=== PATIENT | male | born 1960 | race African-American/Black ===

== ENCOUNTER 2017-01-07 17:11 | Inpatient (IN) | payer MEDICAID, OTHER ==
[~2017-01-07] VITALS: Ht 175.3 cm; Wt 63.5 kg
[~2017-01-07 17:11] MED LIST: NKM
[2017-01-07] MEDS ORDERED: Enoxaparin 60mg Inj SUBQ ONE (17:30)
[2017-01-07] MEDS ORDERED: Aspirin Baby 81mg ORAL ONE (17:30)
[2017-01-07 17:45] LABS: BASOPHILS % (AUTO) 1.6 % (0.0-2.0); LYMPHOCYTES % (AUTO) 43.1 % (20.0-45.0); MEAN CORPUSCULAR HEMOGLOBIN 30.2 PG (27.0-31.0); MEAN CORPUSCULAR HGB CONC 31.4 G/DL (32.0-36.0); MEAN CORPUSCULAR VOLUME 96 FL (80-99); MEAN PLATELET VOLUME 7.7 FL (6.5-10.1); MONOCYTES % (AUTO) 9.1 % (1.0-10.0); NEUTROPHILS % (AUTO) 42.2 % (45.0-75.0); PLATELET COUNT 223 K/UL (150-450); RED BLOOD COUNT 4.71 M/UL (4.70-6.10); RED CELL DISTRIBUTION WIDTH 12.2 % (11.6-14.8); WHITE BLOOD COUNT 6.6 K/UL (4.8-10.8)
[2017-01-07 17:51] LABS: ALANINE AMINOTRANSFERASE 15 U/L (3-41); ALBUMIN/GLOBULIN RATIO 1.8 (1.0-2.7); ASPARTATE AMINO TRANSFERASE 17 U/L (5-40); CALCIUM 9.6 mg/dL (8.6-10.2); CARBON DIOXIDE 27 mEQ/L (20-30); GLOMERULAR FILTRATION RATE > 60 mL/min (>60); HEMOLYSIS 3; TOTAL PROTEIN 7.2 g/dL (6.6-8.7); TROPONIN I < 0.30 ng/mL (<=0.30)
[2017-01-07 17:52] LABS: ANION GAP 13 (5-15); CHLORIDE 99 mEQ/L (98-107); POTASSIUM 3.7 mEQ/L (3.4-4.9); SODIUM 139 mEQ/L (135-145)
[2017-01-07 17:56] VITALS: BP 148/85
[2017-01-07 18:02] LABS: CKMB 1.8 ng/mL (< 6.7)
[2017-01-07] MEDS ORDERED: AMLODIPINE-BEN1 EAC1 ORAL (18:23)
[2017-01-07] MEDS ORDERED: ISOSORBIDE MONO30 M1 PO (18:23)
[2017-01-07] MEDS ORDERED: LISINOPRIL5 MG ORAL (18:23)
[2017-01-07] MEDS ORDERED: CLOPIDOGREL75 MG ORAL (18:23)
--- NOTE | 2017-01-07 19:13 | Emergency Room Report ---
History of Present Illness General Chief Complaint: Chest Pain Source: Patient Present Illness HPI Patient is a 56-year-old male who presented after increased chest pain. Patient reported having increased chest tightness. He had previously had angioplasty approximately one year ago. Patient had the previously been noted to have some stents placed at [facility]. He reported being compliant with his medications. The patient states that the pain was moderate in nature. He denied any fever or cough. He denied any leg pain or swelling. Allergies: Coded Allergies: No Known Allergies (Unverified , 06/07/15) Patient History Past Medical History: see triage record Reviewed Nursing Documentation: PMH: Agreed, PSxH: Agreed Nursing Documentation-PMH Hx Cardiac Problems: Yes - TX 4x stent Hx Hypertension: Yes Hx Cancer: No Hx Gastrointestinal Problems: No Hx Neurological Problems: No Review of Systems All Other Systems: negative except mentioned in HPI Physical Exam Vital Signs Date Time Temp Pulse Resp B/P (MAP) Pulse Ox O2 Delivery O2 Flow Rate FiO2 01/07/17 17:19 98.4 88 18 140/95 100 Room Air Sp02 EP Interpretation: reviewed, normal General Appearance: normal inspection, well appearing, no apparent distress, alert, GCS 15 Head: atraumatic ENT: normal ENT inspection, hearing grossly normal, normal voice Neck: normal inspection, full range of motion, supple, no bony tend Respiratory: normal inspection, lungs clear, normal breath sounds, no respiratory distress, no retraction, no wheezing Cardiovascular #1: regular rate, rhythm, no edema Gastrointestinal: normal inspection, normal bowel sounds, non tender, soft, no guarding, no hernia Genitourinary: no CVA tenderness Musculoskeletal: normal inspection, back normal, normal range of motion Neurologic: normal inspection, alert, oriented x3, responsive, rn delivery III-XII nml as tested, speech normal Psychiatric: normal inspection, judgement/insight normal, mood/affect normal Skin: normal inspection, normal color, no rash Medical Decision Making Diagnostic Impression: Primary Impression: Chest pain Additional Impression: ACS (acute coronary syndrome) ER Course Patient presented for chest pain.Differential diagnosis included but was not limited to acute coronary syndrome, pulmonary embolism, pneumonia, aortic dissection, shingles, pneumothorax, aortic dissection, esophageal rupture, pericarditis. Because of complexity of patient's case laboratory testing and imaging studies were ordered. EKG interpreted by me showed normal sinus rhythm with a rate of [address] changes. The patient was noted to have frequent PVCs. The patient noted have T-wave inversion inferiorly and laterally. The patient was given aspirin as well as Lovenox. The patient reported having some improvement in his painThe initial laboratory testing showed negative troponin. Dr. Aba Cowan was contacted for cardiology consult. Dr. Kvng Sen was contacted for inpatient management due to capitated physician. Labs Test 01/07/17 17:30 White Blood Count 6.6 K/UL (4.8-10.8) Red Blood Count 4.71 M/UL (4.70-6.10) Hemoglobin 14.2 G/DL (14.2-18.0) Hematocrit 45.2 % (42.0-52.0) Mean Corpuscular Volume 96 FL (80-99) Mean Corpuscular Hemoglobin 30.2 PG (27.0-31.0) Mean Corpuscular Hemoglobin Concent 31.4 G/DL (32.0-36.0) Red Cell Distribution Width 12.2 % (11.6-14.8) Platelet Count 223 K/UL (150-450) Mean Platelet Volume 7.7 FL (6.5-10.1) Neutrophils (%) (Auto) 42.2 % (45.0-75.0) Lymphocytes (%) (Auto) 43.1 % (20.0-45.0) Monocytes (%) (Auto) 9.1 % (1.0-10.0) Eosinophils (%) (Auto) 4.0 % (0.0-3.0) Basophils (%) (Auto) 1.6 % (0.0-2.0) Sodium Level 139 mEQ/L (135-145) Potassium Level 3.7 mEQ/L (3.4-4.9) Chloride Level 99 mEQ/L (98-107) Carbon Dioxide Level 27 mEQ/L (20-30) Anion Gap 13 (5-15) Blood Urea Nitrogen 8 mg/dL (7-23) Creatinine 1.0 mg/dL (0.7-1.2) Estimat Glomerular Filtration Rate > 60 mL/min (>60) Glucose Level 131 mg/dL (74-106) Calcium Level 9.6 mg/dL (8.6-10.2) Total Bilirubin 0.3 mg/dL (0.0-1.2) Aspartate Amino Transf (AST/SGOT) 17 U/L (5-40) Alanine Aminotransferase (ALT/SGPT) 15 U/L (3-41) Alkaline Phosphatase 74 U/L (40-129) Total Creatine Kinase 133 U/L (38-174) Creatine Kinase MB 1.8 ng/mL (< 6.7) Creatine Kinase MB Relative Index 1.3 Troponin I < 0.30 ng/mL (<=0.30) Pro-B-Type Natriuretic Peptide 184 pg/mL (0-125) Total Protein 7.2 g/dL (6.6-8.7) Albumin 4.7 g/dL (3.5-5.2) Globulin 2.5 g/dL Albumin/Globulin Ratio 1.8 (1.0-2.7) EKG Diagnostic Results Rate: normal Rhythm: NSR ST Segments: other - t wave inversion Rhythm Strip Diag. Results EP Interpretation: yes Rhythm: NSR, no PVC's, no ectopy, other Last Vital Signs Date Time Temp Pulse Resp B/P (MAP) Pulse Ox O2 Delivery O2 Flow Rate FiO2 01/07/17 17:56 98.4 74 19 148/85 100 Room Air Status: improved Disposition: XFER SHT-TRM HOSP Condition: Serious Referrals: [facility],REFERRING (PCP) Yonatan Brice Jan 07, 2017 19:13
[2017-01-07 19:30] VITALS: BP 166/99
[2017-01-08] VITALS: BP 146/98
[2017-01-08] MEDS ORDERED: NS 275ml ONE (00:59)
[2017-01-08] MEDS ORDERED: Carvedilol 6.25mg Tab ORAL ONE (02:45)
--- NOTE | 2017-01-08 07:01 | Consultation ---
DATE OF CONSULTATION: 01/07/2017 CARDIOLOGY CONSULTATION CONSULTING PHYSICIAN: Aba Cowan M.D. REQUESTING PHYSICIAN: Kvng Sen M.D. Reason for consultation: Chest pain and known coronary artery disease with prior coronary stents. History of present illness: This is a 56-year-old male. He has a known history of coronary artery disease. He had a myocardial infarction and subsequent coronary stent, approximately one year ago. He has been compliant with medications and diet. He developed moderate pain, unprovoked today. He was seen in the emergency room where initial troponin level was negative. His presenting EKG reveals sinus rhythm with inferolateral ST-T abnormalities. Hospitalization was initiated. I have been asked to assist with further care. Past Medical History: Coronary artery disease with coronary stent and hypertension. MEDICATIONS: Reviewed and reconciled. ALLERGIES: None known. SOCIAL HISTORY: Negative for smoking, alcohol, or substance abuse. FAMILY HISTORY: Noncontributory. Review Of Systems: A 10-point review of systems performed, all pertinent data outlined above. Otherwise, all systems negative. PHYSICAL EXAMINATION: Vital signs: Afebrile, blood pressure 140/95, pulse rate 88, and respiratory rate 18. HEENT: Conjunctivae are pink. Sclerae are anicteric. Oropharynx is clear. NECK: Supple. No bruits. Jugular venous pressure is normal. LUNGS: Clear. CARDIAC: Regular. Normal S1 and S2 with no murmur, rub or gallop. ABDOMEN: Soft and nontender. EXTREMITIES: No edema. DIAGNOSTIC DATA: EKG as noted above. IMPRESSION: 1. Acute coronary syndrome. 2. Ischemic heart disease with history of coronary stents. 3. Hypertension with elevated blood pressure range. PLAN: 1. Cardiac monitoring. 2. Anti-platelet therapy. 3. Beta-blockade. 4. Titrate antihypertensives. 5. Check lipid panel. 6. DVT prophylaxis. 7. Serial troponin level. We will reassess for further assessment of coronary flow reserve, noninvasive study, transferred for coronary angiography, should there be signs of ongoing ischemia. Aba Cowan M.D. : NALDO/[employer] JOB#: [id number] CC:
[2017-01-08] MEDS ORDERED: Carvedilol 6.25mg Tab ORAL SCH (09:00)
--- NOTE | 2017-01-08 09:59 | Diagnostic Imaging Report ---
Indication: SOB Technique: One view of the chest Comparison: 06/07 2015 Findings: Lungs and pleural spaces are clear. The heart size is normal. Impression: Negative
--- NOTE | 2017-01-09 02:15 | Consultation ---
DATE OF CONSULTATION: 01/07/2017 HISTORY AND PHYSICAL/INTERNAL MEDICINE CONSULT History of Present Illness: This is a 56-year-old male with a history of CAD admitted to the hospital with chest pain. He was seen in the emergency room. Initial troponins negative. EKG showed inferolateral ST wave changes. He was seen also by Cardiology. On my arrival, the patient is leaving AMA and is unable to provide further history. MEDICATIONS: Reviewed and reconciled. ALLERGIES: None. REVIEW OF SYSTEMS: A 10-point system was conducted and was normal. PHYSICAL EXAMINATION: Heart: All cardiology is within normal limits. 00:44 discussed above. IMPRESSION: 1. 00:47 acute coronary syndrome. 2. Ischemic heart disease with coronary artery disease. 3. Hypertension. Discussion: At this time, he decided to leave AMA and arrangements were already in place for him to be transferred to 00: Hospital, however he chose to leave AM. We will notify insurance. Kvng Sen M.D. DR: CHAYITO JOB#: [id number] CC:
--- NOTE | 2017-01-09 13:23 | Discharge Summary ---
Discharge Summary Hospital Course Date of Admission Jan 07, 2017 at 20:16 Date of Discharge Jan 08, 2017 at 01:00 Admitting Diagnosis acute coronary syndrome , chest pain ISMAEL Aggarwal is a 56 year old male who was admitted on Jan 07, 2017 at 20:16 for Acute Coronary Syndrome,Chest Pain Hospital Course dc summary #[id number] Discharge Discharge Disposition Patient was discharged to Discharge Diagnoses: Discharge Instructions Discharge Instructions Special Instructions I have been assigned to complete a D/C Summary on this account. I was not involved in the patient management Pallavi Phelan NP (Vanchtein) Jan 09, 2017 13:23
--- NOTE | 2017-01-10 17:00 | Discharge Summary 2 SIG ---
DATE OF ADMISSION: 01/07/2017 DATE OF DISCHARGE: 01/08/2017 Reason For Admission: 56-year-old male with a history of hypertension and coronary artery disease, status post angioplasty, presented with chest pain, described as a chest tightness. He denied any fever or cough. He denied leg pain or swelling. Troponin was negative. Blood pressure was elevated 140/95 and pulse oximetry was stable on room air. First troponin was negative. Chest x-ray revealed no acute cardiopulmonary pathology. EKG revealed T-wave inversion and pro BNP was 184. The patient was admitted for further management. ADMITTING DIAGNOSES: 1. Chest pain. 2. Acute coronary syndrome. 3. Ischemic heart disease with coronary stent. 4. Hypertension with elevated blood pressure range. Hospital Stay: The patient was admitted. Cardiology along with the primary doctor seen and evaluated the patient. The patient was on telemetry floor. The patient was started on antiplatelet therapy and beta blockage. Antihypertensive medications were titrated. DVT prophylaxis was provided. Inside Sales Specialist ordered lipid panel and serial troponin. Per pressurization mechanic, the patient was in need for assessment of coronary flow reserve, noninvasive studies, and transfer for coronary angiogram should there be any signs of ongoing ischemia. Per insurance purposes, the patient needed to be transferred to [facility]. The patient stated that was too far and decided to sign against medical advice. Risks and consequences of signing against medical advice were discussed with the patient. The patient verbalized understanding, but signed against medical advice form. The patient was reminded to call 911 or go to the nearest emergency room if he experiences increased chest pain or shortness of breath. Kvng Sen M.D. I have been assigned to dictate discharge summary on this account and I was not involved in the patient's management. Pallavi Kimbill N.PJohnny DR: LAMBERTO JOB#: [id number] CC: LINH
--- NOTE | 2017-01-10 19:38 | Cardiology Report ---
APPROVED REPORT EKG Measurement Heart [id number] Normal sinus rhythm Possible Left atrial enlargement Left ventricular hypertrophy with QRS widening Cannot rule out Inferior infarct, age undetermined T wave abnormality, consider lateral ischemia Abnormal ECG
== END 2017-01-08 01:00 | disposition left against medical advice (07) | DRG 198 ==
LOC: EMR 17:59 → 2E 20:16 → EDBEDREQ 20:19
DX: I24.9 Acute ischemic heart disease, unspecified (principal); I10 Essential (primary) hypertension; Z53.21 Procedure and treatment not carried out due to patient leaving prior to being seen by health care provider; I25.10 Atherosclerotic heart disease of native coronary artery without angina pectoris; Z95.5 Presence of coronary angioplasty implant and graft
CPT/HCPCS: 36415; 71010; 80053; 82550; 82553; 83880; 84484; 85025; 93005; 99285